=== PATIENT | female | born 1950 | race Caucasian/White ===

== ENCOUNTER → 2017-12-26 | Outpatient (CLI) | payer OTHER ==
[~2017-12-26] MED LIST: HYDROCODONE-AP1 EAC6 PO; OMEPRAZOLE20 M1
== END ==
LOC: M.RAD 12-21 07:39
DX: N63.20 Unspecified lump in the left breast, unspecified quadrant (principal); R92.8 Other abnormal and inconclusive findings on diagnostic imaging of breast

== ENCOUNTER → 2018-07-03 | Outpatient (CLI) | payer OTHER | LOC: M.RAD 09:36 | DX: Z12.31 Encounter for screening mammogram for malignant neoplasm of breast (principal) ==

== ENCOUNTER → 2019-01-09 | Outpatient (CLI) | payer OTHER | LOC: M.RAD 13:23 | DX: M81.0 Age-related osteoporosis without current pathological fracture (principal) ==

== ENCOUNTER → 2019-07-26 | Outpatient (CLI) | payer OTHER | LOC: M.RAD 10:00 | DX: Z12.31 Encounter for screening mammogram for malignant neoplasm of breast (principal) ==

== ENCOUNTER → 2020-08-05 | Outpatient (CLI) | payer OTHER | LOC: M.RAD 09:42 | PROVIDERS: ATTEND Family Medicine | DX: Z12.31 Encounter for screening mammogram for malignant neoplasm of breast (principal) ==

== ENCOUNTER → 2021-08-06 | Outpatient (CLI) | payer OTHER | LOC: M.RAD 14:13 | PROVIDERS: ATTEND Family Medicine | DX: Z12.31 Encounter for screening mammogram for malignant neoplasm of breast (principal); Z13.820 Encounter for screening for osteoporosis; M85.88 Other specified disorders of bone density and structure, other site; M81.0 Age-related osteoporosis without current pathological fracture ==